=== PATIENT | female | born 1975 | race Asian ===

== ENCOUNTER 2020-09-24 13:50 | Emergency (ER) | payer OTHER ==
[~2020-09-24] VITALS: Ht 157.5 cm; Wt 68.0 kg
[2020-09-24] MEDS ORDERED: CYCLOBENZAPRINE5 MG PO (15:54)
[2020-09-24] MEDS ORDERED: MEDROLDOSEPACK PO (15:54)
[2020-09-24] MEDS ORDERED: NORCO 5-325 TA1 EAC2 PO (15:54)
[2020-09-24 16:35] VITALS: BP 118/72
== END 2020-09-24 16:35 | disposition home or self-care (01) ==
LOC: ER 13:50
DX: S16.1XXA Strain of muscle, fascia and tendon at neck level, initial encounter (principal); M54.12 Radiculopathy, cervical region; R51.9 Headache, unspecified; M25.511 Pain in right shoulder; V89.2XXA Person injured in unspecified motor-vehicle accident, traffic, initial encounter; Y93.89 Activity, other specified; Y92.488 Other paved roadways as the place of occurrence of the external cause; Y99.8 Other external cause status